=== PATIENT | female | born 1990 | race Caucasian/White ===

== ENCOUNTER 2018-03-30 07:57 | Emergency (ER) | payer OTHER ==
[~2018-03-30] VITALS: Ht 149.9 cm; Wt 55.3 kg
[2018-03-30 08:09] VITALS: Ht 149.9 cm; Wt 55.3 kg
[2018-03-30 09:17] LABS: microscopic required? YES; urine erythrocyte 3+ (NEGATIVE)
[2018-03-30 09:39] LABS: PLATELET COUNT 217 x10^3mcL (130-400); RED CELL DISTRIBUTION WIDTH 13.4 % (11.5-14.5)
[2018-03-30 10:41] LABS: BAND NEUTROPHIL 0 % (0-10); BASOPHIL 0 % (0-2); MONOCYTE 3 % (0-7); SEGMENTED NEUTROPHILS 96 % (37-75)
[2018-03-30 10:42] LABS: PLATELET MORPHOLOGY PLATELETS DECREASED; rbc morphology (normal/abnorm) NORMAL (NORMAL)
[2018-03-30 10:54] VITALS: BP 102/62
== END 2018-03-30 10:54 | disposition home or self-care (01) ==
LOC: ED 07:57
PROVIDERS: Emergency Medicine
DX: O23.41 Unspecified infection of urinary tract in pregnancy, first trimester (principal); Z3A.01 Less than 8 weeks gestation of pregnancy; Z88.0 Allergy status to penicillin
CPT/HCPCS: 36415

== ENCOUNTER 2018-04-01 08:57 | Emergency (ER) | payer OTHER ==
[~2018-04-01] VITALS: Ht 149.9 cm; Wt 54.9 kg
[2018-04-01 09:03] VITALS: Ht 149.9 cm; Wt 54.9 kg
[2018-04-01 12:50] VITALS: BP 120/74
== END 2018-04-01 12:50 | disposition home or self-care (01) ==
LOC: ED 08:57
DX: R51 Headache (principal); Z88.0 Allergy status to penicillin